=== PATIENT | male | born 1990 | race American Indian/Alaskan Native ===

== ENCOUNTER 2019-08-19 11:44 | Emergency (ER) | payer SELFPAY ==
[2019-08-19 12:40] VITALS: BP 138/94
--- NOTE | 2019-08-19 12:40 | Emergency Department Report ---
Chief Complaint: Urogenital-Male Stated Complaint: HEADACHE/V Time Seen by Provider: 08/19/19 12:35 - HPI History of Present Illness: 29 y/o male comes in for wanting a STD check. Denies a fever. Having a discharge or abdominal pain. - Exam Physical Exam: AxO times 3 NAD. Eating chips in Triage. Ambulatory. MSE screening note: Focused history and physical exam performed. Due to findings the following was ordered: 29 y/o male comes in for wanting a STD check. Denies a fever. Having a discharge or abdominal pain. ED Disposition for MSE Condition: Stable
== END 2019-08-19 16:44 | disposition left against medical advice (07) ==
LOC: ED 11:44
DX: R51 Headache (principal); R05 Cough; Z53.21 Procedure and treatment not carried out due to patient leaving prior to being seen by health care provider
CPT/HCPCS: 99281